=== PATIENT | female | born 1965 | race Caucasian/White ===

== ENCOUNTER 2017-05-17 12:58 | Emergency (ER) | payer MEDICAID | END 2017-05-17 16:40 | disposition home or self-care (01) | LOC: D.ER 12:58 | DX: B34.9 Viral infection, unspecified (principal); I10 Essential (primary) hypertension; F31.89 Other bipolar disorder; K21.9 Gastro-esophageal reflux disease without esophagitis; R05 Cough; R09.89 Other specified symptoms and signs involving the circulatory and respiratory systems; F17.200 Nicotine dependence, unspecified, uncomplicated ==